=== PATIENT | female | born 1945 | race American Indian/Alaskan Native ===

== ENCOUNTER 2021-10-09 07:54 | Emergency (ER) | payer MEDICARE ==
--- NOTE | 2021-10-09 08:20 | Emergency Department Report ---
ED Chest Pain HPI - General Chief Complaint: High BP Stated Complaint: HYPERTENSION Time Seen by Provider: 10/09/21 08:11 Source: EMS, old records reviewed Mode of arrival: Stretcher Limitations: No Limitations - History of Present Illness Initial Comments: 76-year-old female with a past medical history of hypertension, osteoarthritis, with obesity, and gout presents to the hospital with complaints of intermittent headache, chest pain, and elevated BP. Patient has been noncompliant with her BP medications for at least 30 days due to lack of transportation. She complains of a frontal intermittent headache rated 4/10 in intensity and seen spots in her vision. She also complains of intermittent squeezing left-sided chest pain without associated symptoms. Patient denies chest pain at this time. as per medical record review patient was admitted here in July with COVID. 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 We have recommended guideline directed medical therapy to include afterload agents, beta-blockers, baby aspirin and spironolactone. Patient is stable for cardiac discharge, follow-up in our office in 7 to 10 days. May 26, 2021 Cath with near normal coronary artery. Pt's application designer: Dr Sanders ems ekg LBBB, similar to previous to ekg on record Severity scale (0 -10): 0 - Related Data Previous Rx's Medication Instructions Recorded Last Taken Type Aspirin [Aspirin BABY CHEW TAB] 81 mg PO QDAY 30 Days #30 tab.chew 05/27/21 Unknown Rx AtorvaSTATin [Lipitor] 40 mg PO QHS 30 Days #30 tablet 05/27/21 Unknown Rx Colcrys 0.6 mg PO BID 30 Days #60 05/27/21 Unknown Rx Nitroglycerin [Nitrostat] 0.4 mg SL Q5M PRN 30 Days #30 05/27/21 Unknown Rx tablet carvediloL [Coreg] 6.25 mg PO BID 30 Days #60 tablet 05/27/21 Unknown Rx ALBUTEROL NEB's [Proventil 0.083% 2.5 mg IH Q4HRT PRN #90 nebu 07/21/21 Unknown Rx NEBS] Ascorbic Acid/Ascorbate Sodium 500 mg PO BID #60 tab.chew 07/21/21 Unknown Rx [Vitamin C 500 mg Tablet Chew] Cholecalciferol (Vitamin D3) 5,000 unit PO DAILY #30 tablet 07/21/21 Unknown Rx [Vitamin D3] Zinc Sulfate 220 mg PO DAILY #30 capsule 07/21/21 Unknown Rx predniSONE 40 mg PO QDAY 5 Days #20 tablet 07/21/21 Unknown Rx Furosemide [Lasix TAB] 40 mg PO QDAY 30 Days #30 tablet 10/09/21 Unknown Rx Spironolactone [Aldactone] 25 mg PO QDAY 30 Days #30 tablet 10/09/21 Unknown Rx carvediloL [Coreg] 3.125 mg PO BID #60 tablet 10/09/21 Unknown Rx lisinopriL [Zestril TAB] 5 mg PO DAILY #30 tablet 10/09/21 Unknown Rx Allergies Allergy/AdvReac Type Severity Reaction Status Date / Time No Known Allergies Allergy Verified 05/27/21 10:43 Heart Score - HEART Score History: Slightly suspicious EKG: Non-specific Age: > 65 Risk factors: > 3 risk factors or hx of atherosclerotic disease Troponin: < normal limit HEART Score: 5 - EKG Read Time Time EKG Completed: 14:02 EKG Read Time: 14:10 ED Review of Systems ROS: Stated complaint: HYPERTENSION Other details as noted in HPI Comment: All other systems reviewed and negative ED Past Medical Hx - Past Medical History Hx Hypertension: Yes Hx Arthritis: Yes Additional medical history: Gout, morbid obesity - Surgical History Additional Surgical History: Tubaligation, Cyst removed from rectum - Social History Smoking Status: Never Smoker - Medications Home Medications: Home Medications Medication Instructions Recorded Confirmed Last Taken Type Aspirin [Aspirin BABY CHEW TAB] 81 mg PO QDAY 30 Days #30 tab.chew 05/27/21 Unknown Rx AtorvaSTATin [Lipitor] 40 mg PO QHS 30 Days #30 tablet 05/27/21 Unknown Rx Colcrys 0.6 mg PO BID 30 Days #60 05/27/21 Unknown Rx Nitroglycerin [Nitrostat] 0.4 mg SL Q5M PRN 30 Days #30 05/27/21 Unknown Rx tablet carvediloL [Coreg] 6.25 mg PO BID 30 Days #60 tablet 05/27/21 Unknown Rx ALBUTEROL NEB's [Proventil 0.083% 2.5 mg IH Q4HRT PRN #90 nebu 07/21/21 Unknown Rx NEBS] Ascorbic Acid/Ascorbate Sodium 500 mg PO BID #60 tab.chew 07/21/21 Unknown Rx [Vitamin C 500 mg Tablet Chew] Cholecalciferol (Vitamin D3) 5,000 unit PO DAILY #30 tablet 07/21/21 Unknown Rx [Vitamin D3] Zinc Sulfate 220 mg PO DAILY #30 capsule 07/21/21 Unknown Rx predniSONE 40 mg PO QDAY 5 Days #20 tablet 07/21/21 Unknown Rx Furosemide [Lasix TAB] 40 mg PO QDAY 30 Days #30 tablet 10/09/21 Unknown Rx Spironolactone [Aldactone] 25 mg PO QDAY 30 Days #30 tablet 10/09/21 Unknown Rx carvediloL [Coreg] 3.125 mg PO BID #60 tablet 10/09/21 Unknown Rx lisinopriL [Zestril TAB] 5 mg PO DAILY #30 tablet 10/09/21 Unknown Rx ED Physical Exam - General Limitations: No Limitations - Other Other exam information: General: No acute distress Head: Atraumatic Eyes: normal appearance ENT: Moist mucous membranes Neck: Normal appearance, no midline tenderness Chest: Clear to auscultation bilaterally CV: Regular rate and rhythm Abdomen: Soft, normal bowel sounds, nontender, nondistended, no rebound or guarding Back: Normal inspection Extremity: Normal inspection, full range of motion Neuro: Alert O x 3, no facial asymmetry, speech clear, no gross motor sensory deficit Psych: Appropriate behavior Skin: No rash ED Course Vital Signs 10/09/21 10/09/21 10/09/21 08:00 08:20 08:30 Temperature 98.4 F Pulse Rate 65 Respiratory 18 Rate Blood Pressure Blood Pressure 188/82 [Left] Blood Pressure [Right] O2 Sat by Pulse 99 97 96 Oximetry 10/09/21 10/09/21 10/09/21 08:50 08:54 09:00 Temperature Pulse Rate 66 63 Respiratory 24 24 Rate Blood Pressure 185/105 179/75 Blood Pressure [Left] Blood Pressure 179/75 [Right] O2 Sat by Pulse 94 95 97 Oximetry 10/09/21 10/09/21 10/09/21 09:16 09:30 09:46 Temperature Pulse Rate 81 74 60 Respiratory 19 19 13 Rate Blood Pressure 179/75 179/75 179/75 Blood Pressure [Left] Blood Pressure [Right] O2 Sat by Pulse 96 97 97 Oximetry 10/09/21 10/09/21 10/09/21 10:00 10:16 10:30 Temperature Pulse Rate 67 77 75 Respiratory 12 17 17 Rate Blood Pressure 179/75 147/126 Blood Pressure [Left] Blood Pressure [Right] O2 Sat by Pulse 96 95 96 Oximetry 10/09/21 10/09/21 10/09/21 10:46 11:00 11:16 Temperature Pulse Rate 61 60 57 L Respiratory 21 30 H 22 Rate Blood Pressure 147/126 147/126 147/126 Blood Pressure [Left] Blood Pressure [Right] O2 Sat by Pulse 96 97 97 Oximetry 10/09/21 10/09/21 10/09/21 11:30 11:33 11:46 Temperature Pulse Rate 58 L 63 Respiratory 16 17 Rate Blood Pressure 174/81 174/81 Blood Pressure [Left] Blood Pressure [Right] O2 Sat by Pulse 99 97 97 Oximetry 10/09/21 10/09/21 10/09/21 12:00 12:15 12:30 Temperature Pulse Rate 65 62 64 Respiratory 21 15 27 H Rate Blood Pressure 178/127 168/102 182/74 Blood Pressure [Left] Blood Pressure [Right] O2 Sat by Pulse 98 89 99 Oximetry 10/09/21 10/09/21 10/09/21 12:46 13:00 13:16 Temperature Pulse Rate 62 78 55 L Respiratory 17 15 19 Rate Blood Pressure 182/74 162/59 162/59 Blood Pressure [Left] Blood Pressure [Right] O2 Sat by Pulse 98 93 97 Oximetry 10/09/21 10/09/21 10/09/21 13:30 13:46 14:00 Temperature Pulse Rate 63 72 60 Respiratory 19 24 17 Rate Blood Pressure 177/69 177/69 177/70 Blood Pressure [Left] Blood Pressure [Right] O2 Sat by Pulse 99 96 97 Oximetry - Consultations Consultation #1: 10/09/21 13:50 case d/w Dr sanders application designer who recommends to decrease carvedilol to 3.25 mg, continue other medications, and add lisinopril 5 mg for afterload reduction MOHAN score - Mohan Score Age > 65: (1) Yes Aspirin use within the Past 7 Days: (0) No 3 or more CAD Risk Factors: (0) No 2 or more Angina events in past 24 hrs: (1) Yes Known CAD with more than 50% Stenosis: (0) No Elevated Cardiac Markers: (0) No ST Deviation Greater than 0.5mm: (0) No MOHAN Score: 2 ED Medical Decision Making - Lab Data Result diagrams: 10/09/21 08:56 10/09/21 09:01 Lab Results 10/09/21 10/09/21 10/09/21 Range/Units 08:56 09:01 09:01 WBC 4.7 (4.5-11.0) K/mm3 RBC 4.87 (3.65-5.03) M/mm3 Hgb 13.9 (10.1-14.3) gm/dl Hct 43.1 H (30.3-42.9) % MCV 89 (79-97) fl MCH 28 (28-32) pg MCHC 32 (30-34) % RDW 15.2 (13.2-15.2) % Plt Count 260 (140-440) K/mm3 Lymph % (Auto) 51.9 H (13.4-35.0) % [place] % (Auto) 6.6 (0.0-7.3) % Eos % (Auto) 2.0 (0.0-4.3) % Baso % (Auto) 0.7 (0.0-1.8) % Lymph # (Auto) 2.4 (1.2-5.4) K/mm3 [place] # (Auto) 0.3 (0.0-0.8) K/mm3 Eos # (Auto) 0.1 (0.0-0.4) K/mm3 Baso # (Auto) 0.0 (0.0-0.1) K/mm3 Seg Neutrophils % 38.8 L (40.0-70.0) % Seg Neutrophils # 1.8 (1.8-7.7) K/mm3 Sodium 141 (137-145) mmol/L Potassium 3.6 (3.6-5.0) mmol/L Chloride 105.4 (98-107) mmol/L Carbon Dioxide 22 (22-30) mmol/L Anion Gap 17 mmol/L BUN 15 (7-17) mg/dL Creatinine 0.9 (0.6-1.2) mg/dL Estimated GFR > 60 ml/min BUN/Creatinine Ratio 17 % Glucose 102 H (65-100) mg/dL Calcium 10.9 H (8.4-10.2) mg/dL Troponin T < 0.010 (0.00-0.029) ng/mL 10/09/21 Range/Units 11:55 WBC (4.5-11.0) K/mm3 RBC (3.65-5.03) M/mm3 Hgb (10.1-14.3) gm/dl Hct (30.3-42.9) % MCV (79-97) fl MCH (28-32) pg MCHC (30-34) % RDW (13.2-15.2) % Plt Count (140-440) K/mm3 Lymph % (Auto) (13.4-35.0) % [place] % (Auto) (0.0-7.3) % Eos % (Auto) (0.0-4.3) % Baso % (Auto) (0.0-1.8) % Lymph # (Auto) (1.2-5.4) K/mm3 [place] # (Auto) (0.0-0.8) K/mm3 Eos # (Auto) (0.0-0.4) K/mm3 Baso # (Auto) (0.0-0.1) K/mm3 Seg Neutrophils % (40.0-70.0) % Seg Neutrophils # (1.8-7.7) K/mm3 Sodium (137-145) mmol/L Potassium (3.6-5.0) mmol/L Chloride (98-107) mmol/L Carbon Dioxide (22-30) mmol/L Anion Gap mmol/L BUN (7-17) mg/dL Creatinine (0.6-1.2) mg/dL Estimated GFR ml/min BUN/Creatinine Ratio % Glucose (65-100) mg/dL Calcium (8.4-10.2) mg/dL Troponin T < 0.010 (0.00-0.029) ng/mL - EKG Data -: EKG Interpreted by Me (EVARISTO) EKG shows normal: ST-T waves (no semi) Rate: bradycardia (59) - EKG Data When compared to previous EKG there are: no significant change - Radiology Data Radiology results: report reviewed NONENHANCED CT SCAN OF THE HEAD: INDICATION / CLINICAL INFORMATION: 76 years Female; headache, intermittent spots in vision. TECHNIQUE: Routine CT head without contrast. All CT scans at this location are performed using CT dose reduction for ALARA by means of automated exposure control. COMPARISON: CT scan of the head from 05/24/2021 FINDINGS: BRAIN / INTRACRANIAL CONTENTS: No acute hemorrhage, mass effect, midline shift, hydrocephalus, or acute, large territorial infarct. No chronic infarct or focal atrophy. Normal brain volume and ventricular/sulcal size for age. Subtle periventricular and focal deep hemispheric low attenuation white matter areas due to chronic small vessel disease CRANIOCERVICAL JUNCTION: No significant abnormality. ORBITS: No significant abnormality of visualized orbits. SINUSES / MASTOIDS: No significant abnormality of the visualized paranasal sinuses or mastoid air cells. ADDITIONAL FINDINGS: None. IMPRESSION: No acute focal parenchymal lesion CHEST 1 VIEW 10/09/2021 7:39 AM INDICATION / CLINICAL INFORMATION: Chest pain. High blood pressure. COMPARISON: One view of the chest from 07/17/2021 FINDINGS: SUPPORT DEVICES: None. HEART / MEDIASTINUM: No significant abnormality. LUNGS / PLEURA: No significant pulmonary abnormality. No significant pleural effusion. No pneumothorax. ADDITIONAL FINDINGS: The bones are unchanged. IMPRESSION: 1. No acute abnormality of the chest. - Medical Decision Making 76-year-old female presents to the hospital complaining of headache and chest pain with medication noncompliance. She presented to ED with hypertension, headache, and reported intermittent left-sided squeezing chest pain. Patient has troponin negative x2. No acute EKG changes. Patient received spironolactone 25mg with reduction in BP. Patient denied chest pain while in the ED and headache improved. Patient had a cardiac cath this past fall with near normal coronary arteries. Case discussed with [place] [facility] MD recreation specialist Dr. Sanders who recommends addition of afterload agent lisinopril 5 mg daily and to decrease the dose of carvedilol to 3.25 mg and continue her other medication as prescribed. Outpatient follow-up recommended Critical Care Time: No Critical care attestation.: If time is entered above; I have spent that time in minutes in the direct care of this critically ill patient, excluding procedure time. ED Disposition Clinical Impression: Uncontrolled hypertension, Noncompliance with medication regimen, Atypical chest pain Disposition: 01 HOME / SELF CARE / HOMELESS Is pt being admited?: No Does the pt Need Aspirin: No Condition: Stable Instructions: Nonspecific Chest Pain, Adult, Nonspecific Chest Pain, Adult, [id number], Hypertension, Adult, [id number], Hypertension (ED) Additional Instructions: Take the medication as prescribed. Follow-up with your doctor and the application designer right. Return if symptoms worsen as indicated by your discharge instructions. Prescriptions: Spironolactone [Aldactone] 25 mg PO QDAY 30 Days #30 tablet carvediloL [Coreg] 3.125 mg PO BID #60 tablet Furosemide [Lasix TAB] 40 mg PO QDAY 30 Days #30 tablet lisinopriL [Zestril TAB] 5 mg PO DAILY #30 tablet Referrals: SHAILA ACEVEDO [Other] - 3-5 Days PAMELLA SANDERS MD [Staff Physician] - 3-5 Days Time of Disposition: 13:50
--- NOTE | 2021-10-09 08:48 | XRay Report ---
CHEST 1 VIEW 10/09/2021 7:39 AM INDICATION / CLINICAL INFORMATION: Chest pain. High blood pressure. COMPARISON: One view of the chest from 07/17/2021 FINDINGS: SUPPORT DEVICES: None. HEART / MEDIASTINUM: No significant abnormality. LUNGS / PLEURA: No significant pulmonary abnormality. No significant pleural effusion. No pneumothora x. ADDITIONAL FINDINGS: The bones are unchanged. IMPRESSION: 1. No acute abnormality of the chest. Signer Name: Franc Sims MD Signed: 10/09/2021 8:44 AM Workstation Name: [id number]
[2021-10-09] MEDS ORDERED: SPIRONOLACTONE 25 MG TAB PO ONE (09:00)
--- NOTE | 2021-10-09 09:05 | Cat Scan Report ---
NONENHANCED CT SCAN OF THE HEAD: INDICATION / CLINICAL INFORMATION: 76 years Female; headache, intermittent spots in vision. TECHNIQUE: Routine CT head without contrast. All CT scans at this location are performed using CT dos e reduction for ALARA by means of automated exposure control. COMPARISON: CT scan of the head from 05/24/2021 FINDINGS: BRAIN / INTRACRANIAL CONTENTS: No acute hemorrhage, mass effect, midline shift, hydrocephalus, or acu te, large territorial infarct. No chronic infarct or focal atrophy. Normal brain volume and ventricul ar/sulcal size for age. Subtle periventricular and focal deep hemispheric low attenuation white matte r areas due to chronic small vessel disease CRANIOCERVICAL JUNCTION: No significant abnormality. ORBITS: No significant abnormality of visualized orbits. SINUSES / MASTOIDS: No significant abnormality of the visualized paranasal sinuses or mastoid air rochelle ls. ADDITIONAL FINDINGS: None. IMPRESSION: No acute focal parenchymal lesion Signer Name: Lexus Lawson MD Signed: 10/09/2021 9:00 AM Workstation Name: [id number]
[2021-10-09 10:08] LABS: BUN/Creatinine Ratio 17; Blood Urea Nitrogen 15 mg/dL (7-17); Calcium 10.9 mg/dL (8.4-10.2); Hemolysis Index 2
[2021-10-09 10:18] LABS: Basophils % (Auto) 0.7 % (0.0-1.8); Eosinophils # (Auto) 0.1 K/mm3 (0.0-0.4); Hematocrit 43.1 % (30.3-42.9); Hemoglobin 13.9 gm/dl (10.1-14.3); Lymphocytes # (Auto) 2.4 K/mm3 (1.2-5.4); Lymphocytes % (Auto) 51.9 % (13.4-35.0); Mean Corpuscular HGB Conc 32 % (30-34); Mean Corpuscular Volume 89 fl (79-97); Monocytes # (Auto) 0.3 K/mm3 (0.0-0.8); Monocytes % (Auto) 6.6 % (0.0-7.3); Platelet Count 260 K/mm3 (140-440); Red Blood Count 4.87 M/mm3 (3.65-5.03); Red Cell Distribution Width 15.2 % (13.2-15.2)
[2021-10-09] MEDS ORDERED: LISINOPRIL 5 MG TAB PO ONE (13:44)
[2021-10-09 17:20] VITALS: BP 175/72
--- NOTE | 2021-10-10 11:32 | Electrocardiograph Report ---
[facility] Test Date: 2021-10-09 Test Time: 14:02:48 Pat Name: SARAH MROEL Department: Room: Gender: F Licensed Journeyman Electrician: KEVEN : 1945 Requested By: LULU LIMON Order Number: [id number] Reading MD: Jaja Mercado Measurements Intervals Lane Rate: 59 P: 23 IA: 160 QRS: 25 QRSD: 154 T: 50 QT: 532 QTc: 529 Interpretive Statements Sinus bradycardia Left bundle branch block ST elevation secondary to IVCD Compared to ECG 07/18/2021 00:41:00 Sinus rhythm no longer present ST (T wave) deviation still present Electronically Signed On 10-10-2021 10:43:57 EDT by Jaja Mercado
== END 2021-10-09 17:21 | disposition home or self-care (01) ==
LOC: ED 07:54
DX: R07.89 Other chest pain (principal); I10 Essential (primary) hypertension; Z91.14 Patient's other noncompliance with medication regimen; M19.90 Unspecified osteoarthritis, unspecified site
CPT/HCPCS: 36415; 70450; 71045; 80048; 84484; 85025; 93005; 99285